=== PATIENT | male | born 1965 | race Caucasian/White ===

== ENCOUNTER → 2020-01-07 | Outpatient (CLI) | payer OTHER ==
[2020-01-07 13:16] LABS: BASOPHILS ABSOLUTE AUTO 0.02 K/mm3 (0.00-0.23); BASOPHILS PERCENT AUTO 0 % (0-2); EOSINOPHILS ABSOLUTE AUTO 0.12 K/mm3 (0.00-0.68); EOSINOPHILS PERCENT AUTO 2 % (0-6); Hematocrit 39.3 % (37.0-53.0); Hemoglobin 12.5 g/dL (13.5-17.5); IMMATURE GRAN ABSOLUTE AUTO 0.03 K/mm3 (0.00-0.10); IMMATURE GRAN PERCENT AUTO 1 % (0-1); LYMPHOCYTES ABSOLUTE AUTO 1.34 K/mm3 (0.84-5.20); LYMPHOCYTES PERCENT AUTO 24 % (21-46); MONOCYTES ABSOLUTE AUTO 0.47 K/mm3 (0.16-1.47); MONOCYTES PERCENT AUTO 8 % (4-13); Mean Corpuscular HGB 26.4 pg (26.0-34.0); Mean Corpuscular HGB Conc 31.8 g/dL (31.5-36.5); Mean Corpuscular Volume 83 fL (80-100); Mean Platelet Volume 9.4 fL (9.1-12.4); NEUTROPHILS ABSOLUTE AUTO 3.72 K/mm3 (1.96-9.15); NEUTROPHILS PERCENT AUTO 65 % (41-73); Platelet Count 301 K/mm3 (150-400); RDW Coefficient Variation 18.4 % (11.7-14.2); RDW Standard Deviation 55.8 fL (35.1-46.3); Red Blood Cell Count 4.74 M/mm3 (4.30-5.90)
== END | disposition home or self-care (01) ==
LOC: LAB EV 13:10 → LAB SHORT 13:10
PROVIDERS: Family Medicine
DX: K92.1 Melena (principal)
CPT/HCPCS: 85025

== ENCOUNTER 2020-03-04 11:50 | Day surgery (SDC) | payer OTHER ==
[~2020-03-04] VITALS: Ht 185.4 cm; Wt 132.1 kg
[~2020-03-04 11:50] MED LIST: Actos30 MG PO; Aspir 8181 MG PO; BUPR150ER PO; GABA100; GABA600 PO; GLUCOPHAGE1000 M1 PO; JARDIANCE10 MG; JARDIANCE25 MG PO; LISI5; METF500; OMEP20ER; OMEP20ER PO; PIOG15
--- NOTE | 2020-03-04 13:08 | NUR ---
03/04/20 1308 Rose Marie Rm PT WITH HARD IV START, RN FRANSICO JAIMES AND RN MARIA G PETERSON WORKING ON IV'S. LIDOCAINE NEBULIZER GIVEN ORDERED BY MD LLANES.
== END 2020-03-04 14:54 | disposition home or self-care (01) ==
LOC: ORSCSDS 11:50
PROVIDERS: Student in an Organized Health Care Education/Training Program
PROC: 0DB68ZX Excision of Stomach, Via Natural or Artificial Opening Endoscopic, Diagnostic (ICD-10-PCS; principal; 2020-03-04 14:00)
PROC: 0DJD8ZZ Inspection of Lower Intestinal Tract, Via Natural or Artificial Opening Endoscopic (ICD-10-PCS; principal; 2020-03-04 14:00)
DX: K92.1 Melena (principal); K31.7 Polyp of stomach and duodenum; Z86.010 Personal history of colon polyps; K44.9 Diaphragmatic hernia without obstruction or gangrene; K64.8 Other hemorrhoids; I10 Essential (primary) hypertension; K21.9 Gastro-esophageal reflux disease without esophagitis; G47.33 Obstructive sleep apnea (adult) (pediatric); E66.01 Morbid (severe) obesity due to excess calories; Z68.38 Body mass index [BMI] 38.0-38.9, adult; E11.9 Type 2 diabetes mellitus without complications; Z79.84 Long term (current) use of oral hypoglycemic drugs; Z79.899 Other long term (current) drug therapy
CPT/HCPCS: 82947; 88305; 88342; J2001; J2250; J2704; J7120; J7799

== ENCOUNTER → 2023-12-19 | Outpatient (CLI) | payer OTHER | END | disposition home or self-care (01) | LOC: LAB SHORT 15:23 | DX: Z51.81 Encounter for therapeutic drug level monitoring (principal); Z79.899 Other long term (current) drug therapy ==

== ENCOUNTER → 2024-02-25 | Outpatient (CLI) | payer OTHER | END | disposition home or self-care (01) | LOC: LAB 18:03 → LAB SHORT 18:03 | DX: Z51.81 Encounter for therapeutic drug level monitoring (principal); Z79.899 Other long term (current) drug therapy ==

== ENCOUNTER → 2024-06-06 | Outpatient (CLI) | payer OTHER ==
[2024-06-10 15:08] LABS: O-DESMETHYLTRAMADOL,URN, QUANT 2248 ng/mL; TRAMADOL, URN, QUANT 6234 ng/mL
[2024-06-10 19:48] LABS: AMPHETAMINE,URN,QUANT 2267 ng/mL; MDA,URN,QUANT <200 ng/mL; MDEA,URN,QUANT <200 ng/mL; MDMA,URN,QUANT <200 ng/mL; METHAMPHETAMINE,URN,QUANT <200 ng/mL; PHENTERMINE,URN,QUANT <200 ng/mL
== END ==
LOC: LAB SHORT 17:23 → LAB 17:23
PROVIDERS: Physician Assistant
DX: Z51.81 Encounter for therapeutic drug level monitoring (principal); Z79.899 Other long term (current) drug therapy
CPT/HCPCS: G0480

== ENCOUNTER → 2024-08-28 | Outpatient (CLI) | payer OTHER ==
[2024-08-28 19:37] LABS: Creatinine, Urine Random 85.3 mg/dL (27.00-270.00); Microalb/Creat Ratio UR, Rand 6.073 mg/g (0.000-30.000); Microalbumin, Random Urine 5.18 mg/L (0.000-20.000)
[2024-09-02 11:52] LABS: AMPHETAMINE,URN,QUANT 51 ng/mL; MDA,URN,QUANT <200 ng/mL; MDEA,URN,QUANT <200 ng/mL; MDMA,URN,QUANT <200 ng/mL; METHAMPHETAMINE,URN,QUANT <200 ng/mL; PHENTERMINE,URN,QUANT <200 ng/mL
[2024-09-03 12:03] LABS: O-DESMETHYLTRAMADOL,URN, QUANT 4468 ng/mL; TRAMADOL, URN, QUANT >10000 ng/mL
== END ==
LOC: LAB SHORT 17:38 → LAB 17:38
PROVIDERS: Physician Assistant
DX: E11.42 Type 2 diabetes mellitus with diabetic polyneuropathy (principal); E11.69 Type 2 diabetes mellitus with other specified complication; Z79.899 Other long term (current) drug therapy
CPT/HCPCS: 82043; 82570; G0480

== ENCOUNTER → 2024-10-08 | Outpatient (CLI) | payer OTHER | LOC: LAB 14:59 → LAB SHORT 14:59 | DX: E55.9 Vitamin D deficiency, unspecified (principal) | CPT/HCPCS: 36415; 82306; 82607; 82746 ==

== ENCOUNTER → 2025-02-12 | Outpatient (CLI) | payer OTHER ==
[2025-02-17 11:36] LABS: O-DESMETHYLTRAMADOL,URN, QUANT 2815 ng/mL; TRAMADOL, URN, QUANT 9999 ng/mL
== END | disposition home or self-care (01) ==
LOC: LAB SHORT 10:51 → LAB 10:51
PROVIDERS: Physician Assistant
DX: Z51.81 Encounter for therapeutic drug level monitoring (principal); Z79.899 Other long term (current) drug therapy
CPT/HCPCS: 80307; G0480